=== PATIENT | male | born 1985 | race Caucasian/White ===

== ENCOUNTER 2020-03-31 20:01 | Inpatient (IN) | payer MEDICAID, SELFPAY ==
[2020-03-31 20:03] VITALS: BP 118/76; PULSE 88; RESP 17; TEMP 35.2; O2SAT 97; BMI 20.2
--- NOTE | 2020-03-31 20:17 | ED.VISSUMM ---
- ER Visit Summary Date of Service: 03/31/20 Chief Complaint: [Requesting detox from alcohol] History of Present Illness: The patient is a 34 M [presents to the emergency department requesting detox from alcohol today. Patient states that he has been drinking tequila today and his last drink was about an hour ago. Patient normally drinks beer and drinks about 6 tall boys per day which she thinks equates to about 2 gallons of beer per day. Patient denies feeling suicidal or homicidal. He is never been through detox before. He does have history of depression and has had multiple psychiatric admissions in the past. Patient with history of GERD and oppositional defiant disorder. Patient denies any abdominal pain. Denies recent illness. Patient states that has been tested for Covid twice in the last month and has been negative both times.] Physical Examination: [HEENT-PERRLA, EOMI. Cranial nerves II through XII grossly intact. TMs clear. Mucous membranes moist. No adenopathy. Cardiovascular-regular rate and rhythm without murmur or ectopy Lungs-clear to auscultation, chest wall stable without crepitus or subcu emphysema Abdomen-normoactive bowel sounds, soft, nontender, no rebound or rigidity, no peritoneal signs. Extremities-intact ?4, normal range of motion, normal pulses, atraumatic] Test Results: [CBC with differential as well as CMP and lipase ordered. Patient had an alcohol level and tox cream ordered.] Emergency Department Course and Treatment: IV line established on arrival. [] Treatment Plan: [Patient will be discussed with hospitalist to evaluate patient for admission] Disposition: [Admit] Impression: [Alcohol intoxication Request for detox from alcohol] This note was generated with Netlog dictation software. It may contain incorrect words, spelling, and punctuation that were not noted in review of the chart prior to signing ED Disposition - Plan for ED Patient: Referrals: NOT,DEFINED [NON-STAFF] -
[2020-03-31] MEDS: 0.9% Normal Saline 1,000 ML 150 ML IV (20:47)
[2020-03-31 21:19] LABS: Amphetamine Urine VISTA NEGATIVE (<1000 ng/mL); Barbiturate Urine VISTA NEGATIVE (< 200 ng/mL); Benzodiazepine Urine VISTA NEGATIVE (< 200 ng/mL); Cocaine Urine VISTA NEGATIVE (< 300 ng/mL); Ecstacy Urine VISTA NEGATIVE (< 500 ng/mL); Methadone Urine VISTA NEGATIVE (< 300 ng/mL); PCP Urine VISTA NEGATIVE (< 25 ng/mL); THC Urine VISTA NEGATIVE (< 50 ng/mL); Vista UDS pH Range 6
[2020-03-31 21:20] LABS: Absolute Lymphocyte Count 2.12 X10^3/uL (0.83-4.51); Absolute Neutrophil Count 5.4 X10^3/uL (2.0-7.7); Basophil# 0.07 X10^3/uL; Basophil% 0.8 % (0-1); Eosinophil# 0.38 X10^3/uL; Eosinophils% 4.5 % (0-5); Hematocrit 42.7 % (40-54); Hemoglobin 14.7 g/dL (13.0-16.5); Lymphocyte # 2.12 X10^3/ul (4.0); Mean Corp Hgb Conc 34.4 g/dL (32-36); Mean Corpuscular Hgb 31.9 pg (27.0-32.0); Mean Corpuscular Volume 92.6 fL (80-94); Mean Platelet Vol. 10.7 fl (6.2-12.0); Monocyte# 0.44 X10^3/uL; Monocyte% 5.2 % (0-10); NRBC Flagged by Analyzer 0 % (0-5); Neutrophil # 5.44 X10^3/uL (2.7-7.7); Neutrophil % 64.1 % (47-70); Platelet Count 190 K/mm3 (150-450); RBC Distribution Width CV 11.9 % (11.6-14.6); RBC Distribution Width SD 40.3 fl (35.1-43.9); Red Blood Count 4.61 M/mm3 (4.6-6.2); White Blood Count 8.5 K/mm3 (4.4-11.0)
[2020-03-31 21:36] LABS: AST(SGOT) 28 U/L (15-37); Alanine Aminotransfer ALT/SGPT 31 U/L (16-61); Albumin, Serum 3.9 g/dL (3.2-5.0); Alkaline Phosphatase 89 U/L (45-117); Anion Gap 7 (5-15); BUN 5 mg/dL (7-18); BUN/Creat Ratio 7.9 RATIO (10-20); Calcium,Total 9.1 mg/dL (8.5-10.1); Chloride 107 mmol/L (98-107); Creatinine, Serum 0.63 mg/dL (0.70-1.30); EST Glomerular Filtration Rate 155 mL/min (>60); Est Glom Filt Rate - Afr Amer 188 mL/min (>60); Estimated Creatinine Clearance 169.06 ml/min; Globulin 3.9 g/dL (2.2-4.2); Glucose 111 mg/dL (74-106); Potassium 3.4 mmol/L (3.5-5.1); Protein, Total 7.8 g/dL (6.4-8.2); Sodium Level 139 mmol/L (136-145)
--- NOTE | 2020-03-31 21:43 | PCM.HP.STD ---
History of Present Illness Date of Admission: 03/31/20 Chief Complaint: Alcohol withdrawal The patient is a 34 year old M with a past medical history significant for chronic alcohol abuse and nicotine dependence. He was admitted through the ED on 03/31/2020 for acute alcohol withdrawal. Patient states he drinks about 6-8 tall boys every day and also drinks tequila sometimes though he does not like tequila because it makes him mean. His last drink was about an hour prior to admission. He had no complaints and denied any dizziness, nausea, tremors, vomiting or palpitations. Review of systems is otherwise negative. He has never been through detox in a facility before, though he has gone cold turkey at home before. On admission, vitals were stable. Chemistry was unremarkable and CBC was also unremarkable. He has been admitted to be managed for acute alcohol withdrawal. Urine tox was negative and serum alcohol level was 217. [] Past Medical History Allergies gabapentin [From Neurontin] Allergy (Verified 03/31/20 20:03) Anaphylaxis Penicillins [PCN] Allergy (Verified 03/31/20 20:03) Anaphylaxis Home Medications: Ambulatory Orders Medication Instructions Recorded Aripiprazole [Abilify] 5 mg PO DAILY 03/31/20 Fluoxetine HCl [Prozac] 20 mg PO DAILY 03/31/20 Omeprazole [Prilosec] 20 mg PO DAILY 03/31/20 Surgical History: - - right LE amputation Lives: Spouse/ Significant Other Smoking Status: Heavy Smoker (>10/day) Tobacco Use: Cigarettes Alcohol: Heavy Drugs: None - *Family History Maternal History Items: No pertinent history Review of Systems Constitutional: Denies: Chills, Fever, Weight Change HEENT: Denies: Head Aches, Sinus Congestion, Sinus Drainage Cardiovascular: Denies: Chest Pain, Chest Pressure, Chest Tightness, Light Headedness, Palpitations Respiratory: Denies: Cough, Shortness of Breath, Shortness of breath at rest, Shortness of breath upon exertion, Sputum production Gastrointestinal: Denies: Abdominal Pain, Nausea, Vomiting Genitourinary: Denies: Dysuria Musculoskeletal: Denies: Joint Pain, Joint Tenderness Skin: Denies: Rash, Wounds Neurological: Denies: Numbness, Tingling, Focal weakness Psychiatric: Denies: Anxiety, Depression, Homicidal Ideations, Suicidal Ideations Hematologic/ Lymphatic: Denies: Easy Bruising, Easy Bleeding VTE Information - Inpt Only VTE Present on Admission: No VTE Pharm Prophylaxis ordered?: Yes - Physical Exam Vitals/I&O's: Vital Signs Temp Pulse Resp BP Pulse Ox 95.3 F L 88 17 118/76 97 03/31/20 20:03 03/31/20 20:03 03/31/20 20:03 03/31/20 20:03 03/31/20 20:03 Oxygen Delivery Method Room Air Weight: 158 lb Body Mass Index (BMI) 20.2 General: Alert, Oriented x3, Cooperative, No apparent distress HEENT: Atraumatic, PERRLA, EOMI, Normocephalic Oral: Moist Mucosa Neck: Supple, No JVD, Negative Carotid Bruits Lungs: Clear to auscultation, Normal air movement, No rhonchi, No wheeze, No rales Cardiovascular: Regular rate, Regular Rhythm, Normal S1, Normal S2, No murmurs Abdomen: Bowel Sounds Present, Soft, Non Tender, Non-Distended, No Hepato-splenomegaly Extremities: No clubbing, No cyanosis, No edema, Capillary Refill Less than 3 Seconds Skin: No rashes, No breakdown Musculoskeletal: - - RLE amputation, with prosthetic limb Lymphatic: No Cervical, Supraclavicular, or Inguinal Adenopathy Neurological: Cranial nerves II-XII grossly intact, Neuro grossly intact, Motor Exam 5/5 strength throughout Psych/Mental Status: Normal Affect, Appropriate, Alert and oriented to time, place, person, mood and affect Laboratory Results 03/31/20 20:35: WBC 8.5, RBC 4.61, Hgb 14.7, Hct 42.7, MCV 92.6, MCH 31.9, MCHC 34.4, RDW Std Deviation 40.3, RDW Coeff of Pepe 11.9, Plt Count 190, MPV 10.7, Immature Gran % (Auto) 0.400, Neut % (Auto) 64.1, Lymph % (Auto) 25.0, [place] % (Auto) 5.2, Eos % (Auto) 4.5, Baso % (Auto) 0.8, Absolute Neuts (auto) 5.4, Absolute Lymphs (auto) 2.12, Nucleated RBC % 0 03/31/20 20:35: Sodium 139, Potassium 3.4 L, Chloride 107, Carbon Dioxide 25.0, Anion Gap 7, BUN 5 L, Creatinine 0.63 L, Estim Creat Clear Calc 169.06, Est GFR (MDRD) Af Amer 188, Est GFR (MDRD) Non-Af 155, BUN/Creatinine Ratio 7.9 L, Glucose 111 H, Calcium 9.1, Total Bilirubin 0.20, AST 28, ALT 31, Alkaline Phosphatase 89, Total Protein 7.8, Albumin 3.9, Globulin 3.9, Albumin/Globulin Ratio 1.0 03/31/20 20:35: Ethyl Alcohol 217.0 03/31/20 20:40: Urine Opiates Screen NEGATIVE, Urine Methadone Screen NEGATIVE, Ur Barbiturates Screen NEGATIVE, Ur Phencyclidine Scrn NEGATIVE, Ur Amphetamines Screen NEGATIVE, U Methamphetamin-MDMA NEGATIVE, U Benzodiazepines Scrn NEGATIVE, Urine Cocaine Screen NEGATIVE, U Cannabinoids Screen NEGATIVE, Ur Drug Screen Comment Current Medications Sodium Chloride () 1,000 mls @ 150 mls/hr IV .Q6H40M [facility] Last Admin: 03/31/20 20:47 Dose: 150 mls/hr Documented by: Assessment/Plan 34 y/o admitted for acute alchohol withdrawal #Acute alcohol withdrawal admit to med surg start on alcohol withdrawal protocol with phenobarb thiamine, folic acid and multivitamins monitor LITZY toussaint wants to follow up with outpatient rehab facility in [facility] where he lives #nicotine dependence: nicotine patch 21mg daily. Counseled to quit #Depression: on fluoxetine and abilify. DVT prophylaxis: low risk, encourage to ambulate Inpatient E&M: 76113 Init Hosp L3
[2020-03-31 21:58] VITALS: BP 118/76; PULSE 88; RESP 17; TEMP 36.3; O2SAT 97
[2020-03-31 22:10] VITALS: BMI 19.3
[2020-03-31 22:16] VITALS: BP 127/88; PULSE 70; RESP 16; TEMP 36.8; O2SAT 98
[2020-03-31 22:31] VITALS: BMI 19.3
[2020-03-31] MEDS: Phenobarbital 32.4 MG Tablet PO (22:38)
[2020-03-31] MEDS: traZODone 100 MG Tablet PO (22:38)
--- NOTE | 2020-03-31 23:04 | PCS.PANDOC ---
PANDEMIC DOCUMENTATION INITIATED: Date:03/31/20 Time: 2199
[2020-04-01] VITALS (7 sets, daily range): BP systolic 107–131; BP diastolic 63–86; PULSE 61–88; RESP 14–16; TEMP 36.7–37.2; O2SAT 97–100
[2020-04-01] MEDS: Phenobarbital 32.4 MG Tablet PO ×6 (01:55→22:01)
[2020-04-01] MEDS: Thiamine Hydrochloride 100 MG Tablet PO ×2 (06:06→18:24)
[2020-04-01] MEDS: Folic Acid 1 MG Tablet PO (06:06)
[2020-04-01] MEDS: Multivitamins,Ther W-Minerals Tablet 1 TABLET PO (06:06)
[2020-04-01 06:26] LABS: Absolute Lymphocyte Count 1.76 X10^3/uL (0.83-4.51); Absolute Neutrophil Count 2.8 X10^3/uL (2.0-7.7); Basophil# 0.05 X10^3/uL; Basophil% 0.9 % (0-1); Eosinophil# 0.48 X10^3/uL; Eosinophils% 8.7 % (0-5); Hematocrit 42.2 % (40-54); Hemoglobin 14.2 g/dL (13.0-16.5); Lymphocyte # 1.76 X10^3/ul (4.0); Lymphocyte % 31.8 % (19-41); Mean Corp Hgb Conc 33.6 g/dL (32-36); Mean Corpuscular Hgb 31.8 pg (27.0-32.0); Mean Corpuscular Volume 94.6 fL (80-94); Mean Platelet Vol. 10.6 fl (6.2-12.0); Monocyte# 0.44 X10^3/uL; NRBC Flagged by Analyzer 0 % (0-5); Neutrophil # 2.79 X10^3/uL (2.7-7.7); Neutrophil % 50.4 % (47-70); Platelet Count 165 K/mm3 (150-450); RBC Distribution Width CV 11.9 % (11.6-14.6); RBC Distribution Width SD 41.3 fl (35.1-43.9); Red Blood Count 4.46 M/mm3 (4.6-6.2); White Blood Count 5.5 K/mm3 (4.4-11.0)
[2020-04-01 06:45] LABS: Anion Gap 5 (5-15); BUN 7 mg/dL (7-18); BUN/Creat Ratio 11.8 RATIO (10-20); Calcium,Total 8.9 mg/dL (8.5-10.1); Chloride 108 mmol/L (98-107); EST Glomerular Filtration Rate 166 mL/min (>60); Est Glom Filt Rate - Afr Amer 201 mL/min (>60); Estimated Creatinine Clearance 168.67 ml/min; Glucose 97 mg/dL (74-106); Sodium Level 140 mmol/L (136-145)
--- NOTE | 2020-04-01 07:10 | PCM.PN.HOSP ---
Subjective: Patient overnight with no acute events per self and per nursing report. He does state his withdrawal symptoms have improved he normally states he drinks in the afternoon therefore he is concerned about more symptoms later but continued on phenobarbital currently. Patient does report nicotine cravings and is requesting continue nicotine patch. Discussed plan of care which included magnesium and phosphorus level checks to which patient is amenable as well as case management consultation with 180 for discharge planning once clinically appropriate. Patient denies fevers, chills, nausea, emesis, abdominal pain, chest pain or dyspnea. Objective: Physical Examination: General: awake, alert, oriented x 3 and cooperative, laying in the medical surgical bed, no acute distress, fatigued but no obvious withdrawal symptoms. Skin: normal color, turgor, no icterus, cyanosis. HEENT: AT/NC, EOMI, PERRLA, MMM. Lungs: CTA bilaterally, normal effort, no rales, ronchi or wheezing. Heart: Regular rate and rhythm; no gallop, rub audible. Abdomen: soft, NTTP, ND, normal BS. Extremities: no cyanosis, clubbing, or edema. Neurological: patient awake, alert, oriented as noted; cognitive function intact; pupils equally reactive to light and accomodation; cranial nerves II-XII grossly normal, moving all 4 extremities, no focal deficits, strength preserved, no obvious evidence of any tremors. Psychiatric: affect appears mildly fatigued otherwise normal, no acute evidence of depressive or anxiety feelings. Vitals/I&O's: Vital Signs Temp Pulse Resp BP Pulse Ox 98.1 F 82 16 130/79 H 97 04/01/20 06:04 04/01/20 06:04 04/01/20 06:04 04/01/20 06:04 04/01/20 06:04 Oxygen Delivery Method Room Air Weight: 150 lb 2.157 oz Body Mass Index (BMI) 19.3 Intake and Output for Last 24 Hours 03/30/20 03/31/20 04/01/20 23:59 23:59 23:59 Intake Total 182.5 / 182.5 800 / 800 Balance 182.5 / 182.5 800 / 800 Laboratory Results 03/31/20 20:35: WBC 8.5, RBC 4.61, Hgb 14.7, Hct 42.7, MCV 92.6, MCH 31.9, MCHC 34.4, RDW Std Deviation 40.3, RDW Coeff of Pepe 11.9, Plt Count 190, MPV 10.7, Immature Gran % (Auto) 0.400, Neut % (Auto) 64.1, Lymph % (Auto) 25.0, [place] % (Auto) 5.2, Eos % (Auto) 4.5, Baso % (Auto) 0.8, Absolute Neuts (auto) 5.4, Absolute Lymphs (auto) 2.12, Nucleated RBC % 0 03/31/20 20:35: Sodium 139, Potassium 3.4 L, Chloride 107, Carbon Dioxide 25.0, Anion Gap 7, BUN 5 L, Creatinine 0.63 L, Estim Creat Clear Calc 169.06, Est GFR (MDRD) Af Amer 188, Est GFR (MDRD) Non-Af 155, BUN/Creatinine Ratio 7.9 L, Glucose 111 H, Calcium 9.1, Total Bilirubin 0.20, AST 28, ALT 31, Alkaline Phosphatase 89, Total Protein 7.8, Albumin 3.9, Globulin 3.9, Albumin/Globulin Ratio 1.0 03/31/20 20:35: Ethyl Alcohol 217.0 03/31/20 20:40: Urine Opiates Screen NEGATIVE, Urine Methadone Screen NEGATIVE, Ur Barbiturates Screen NEGATIVE, Ur Phencyclidine Scrn NEGATIVE, Ur Amphetamines Screen NEGATIVE, U Methamphetamin-MDMA NEGATIVE, U Benzodiazepines Scrn NEGATIVE, Urine Cocaine Screen NEGATIVE, U Cannabinoids Screen NEGATIVE, Ur Drug Screen Comment 04/01/20 05:56: WBC 5.5, RBC 4.46 L, Hgb 14.2, Hct 42.2, MCV 94.6 H, MCH 31.8, MCHC 33.6, RDW Std Deviation 41.3, RDW Coeff of Pepe 11.9, Plt Count 165, MPV 10.6, Immature Gran % (Auto) 0.200, Neut % (Auto) 50.4, Lymph % (Auto) 31.8, [place] % (Auto) 8.0, Eos % (Auto) 8.7 H, Baso % (Auto) 0.9, Absolute Neuts (auto) 2.8, Absolute Lymphs (auto) 1.76, Nucleated RBC % 0 04/01/20 05:56: Sodium 140, Potassium 4.0, Chloride 108 H, Carbon Dioxide 27.0, Anion Gap 5, BUN 7, Creatinine 0.60 L, Estim Creat Clear Calc 168.67, Est GFR (MDRD) Af Amer 201, Est GFR (MDRD) Non-Af 166, BUN/Creatinine Ratio 11.8, Glucose 97, Calcium 8.9 Current Medications Aripiprazole (Aripiprazole 5 Mg Tablet) 5 mg PO DAILY [facility] Dicyclomine HCl (Dicyclomine 10 Mg Capsule) 20 mg PO Q6H PRN PRN PRN Reason: abdominal discomfort Fluoxetine HCl (Fluoxetine 20 Mg Capsule) 20 mg PO DAILY [facility] Folic Acid (Folic Acid 1 Mg Tablet) 1 mg PO DAILY@0800 [facility] Stop: 04/03/20 08:01 Last Admin: 04/01/20 06:06 Dose: 1 mg Documented by: Hydroxyzine Pamoate (Hydroxyzine Hannah 25 Mg Capsule) 50 mg PO Q4H PRN PRN PRN Reason: mild anxiety Loperamide HCl (Loperamide 2 Mg Capsule) 2 mg PO Q4H PRN PRN PRN Reason: LOOSE STOOLS Lorazepam (Lorazepam 1 Mg Tablet) 2 mg PO Q2H PRN PRN; Protocol PRN Reason: CIWA score > 8 but <15 Lorazepam (Lorazepam 1 Mg Tablet) 2 mg PO UD PRN; Protocol PRN Reason: CIWA score >/=15. Lorazepam (Lorazepam 2 Mg/Ml Syringe) 2 mg IV Q2H PRN PRN; Protocol PRN Reason: CIWA score > 8 but <15 Lorazepam (Lorazepam 2 Mg/Ml Syringe) 2 mg IV UD PRN; Protocol PRN Reason: CIWA score >/=15. Multivitamins/Minerals (Multivitamins,Ther [facility]) [facility] Admin: 04/01/20 06:06 Dose: 1 tablet Documented by: Ondansetron HCl (Ondansetron 8 Mg Tablet) 8 mg PO Q8H PRN PRN PRN Reason: NAUSEA Ondansetron HCl (Ondansetron 4 Mg/2 Ml Vial) 4 mg IV Q8H PRN PRN PRN Reason: NAUSEA/VOMITING Pantoprazole Sodium (Pantoprazole Sodium 20 Mg Tablet) 20 mg PO DAILY [facility] Phenobarbital (Phenobarbital 32.4 Mg Tablet) 97.2 mg PO Q4H [facility]; Taper Stop: 02/16/21 06:29 Last Admin: 04/01/20 06:06 Dose: 97.2 mg Documented by: Sodium Chloride (0.9% Saline Lock 10 Ml Syringe) 10 - 40 ml IV UD PRN PRN Reason: SALINE FLUSH Thiamine HCl (Thiamine Hydrochloride 100 Mg Tablet) 100 mg PO BIDCM [facility] Stop: 04/03/20 17:01 Last Admin: 04/01/20 06:06 Dose: 100 mg Documented by: Trazodone HCl (Trazodone 100 Mg Tablet) 100 mg PO QHS PRN PRN PRN Reason: INSOMNIA Last Admin: 03/31/20 22:38 Dose: 100 mg Documented by: STROKE Vital Signs/Narrative: Vital Signs Temp Pulse Resp BP Pulse Ox 04/01/20 06:04 98.1 F 82 16 130/79 H 97 Medical Necessity - Tobacco Use Smoking Status: Current some day smoker Tobacco Use: Cigarettes Assessment/Plan The patient is a 34 y/o M w/ PMHx: Anxiety and Depression/? Bipolar disorder, Tobacco use, GERD, EtOH Abuse who presents to the [facility] ED on 03/31/20 with evidence of acute alcohol withdrawal with normal intake 6-8 tall boys daily as well as intermittent tequila intake. 1. Acute EtOH Withdrawal: Patient mated to the medical surgical floor, routine labs obtained in the ED upon presentation and notable for hypokalemia 3.4. Given interest in sobriety, patient initiated and continued on protocol with taper course of Phenobarbital, as needed Catapres, Bentyl, Vistaril, IV fluids, IV antiemetics, Tylenol as needed for pain. Will consult Case management for assistance for transition to next level of rehabilitation care. Mag, phos obtained and noted to be normal. Maintain on CIWA protocol concurrently. 2. Hypokalemia: Admission K+ 3.4, magnesium obtained and noted to be 2.1, supplementation given, repeat level 04/01/2020 4.0, normalized. 3. Tobacco Abuse: Encouraged cessation, inpatient consultation per RT, NR if desired. 4. Anxiety and depression/? bipolar disorder: We will continue patient home fluoxetine and Abilify regimen. 5. DVT prophylaxis: Low risk, encourage ambulation. Inpatient E&M: 05777 Subs Hosp L2
[2020-04-01 08:52] LABS: Magnesium 2.1 mg/dL (1.6-2.6); Phosphorus 4.5 mg/dL (2.5-4.9)
--- NOTE | 2020-04-01 10:19 | ADDICTION ---
This underwriter solicitation director met with PT in his room to administer the ASAM, MSE and AUDIT assessments and to plan for d/c. PT a+ox4 and participated appropriately. All assessments completed, faxed to [facility] and placed in PT's chart. PT states that he is scheduled to enter into [facility] IOP program, in [place], [place], following d/c from [facility]. He reports that he has independent transportation.
[2020-04-01] MEDS: ARIPiprazole 5 MG Tablet PO (10:30)
[2020-04-01] MEDS: Pantoprazole Sodium 20 MG Tablet PO (10:30)
[2020-04-01] MEDS: FLUoxetine 20 MG Capsule PO (10:30)
[2020-04-01] MEDS: hydrOXYzine PAM 25 MG Capsule 50 MG PO (18:29)
[2020-04-01] MEDS: LORazepam 2 MG/ML Syringe IV (20:02)
[2020-04-01] MEDS: 0.9% Saline Lock 10 ML Syringe IV (20:02)
[2020-04-01] MEDS: traZODone 100 MG Tablet PO (22:02)
[2020-04-02 01:51] VITALS: BP 124/77; PULSE 68; RESP 16; TEMP 36.5; O2SAT 97
[2020-04-02] MEDS: Phenobarbital 32.4 MG Tablet PO ×6 (01:56→23:09)
[2020-04-02 06:22] VITALS: BP 123/75; PULSE 74; RESP 18; TEMP 37; O2SAT 97
[2020-04-02] MEDS: Thiamine Hydrochloride 100 MG Tablet PO ×2 (06:33→18:45)
[2020-04-02] MEDS: Multivitamins,Ther W-Minerals Tablet 1 TABLET PO (06:33)
[2020-04-02] MEDS: Folic Acid 1 MG Tablet PO (06:33)
--- NOTE | 2020-04-02 06:54 | PCM.PN.HOSP ---
Subjective: Patient with no acute events overnight per self and per nursing report however did have elevated CIWA score in the evening requiring 1 dose of Ativan overlapping with his phenobarbital taper but improved following this. He notes sleeping well and was very sluggish this morning. Later in the morning when attempting to get up patient did fall forward and bumped his head on the wall but had no loss of consciousness nor any abrasions and was clinically well-appearing. Patient denies fevers, chills, nausea, emesis, abdominal pain, chest pain or dyspnea. Objective: Physical Examination: General: Wakens to stimuli, somewhat alert but more sluggish than day prior, no acute complaints at this time, cooperative, laying in the medical surgical bed, no acute distress, fatigued but no obvious withdrawal symptoms. Skin: normal color, turgor, no icterus, cyanosis. HEENT: AT/NC, EOMI, PERRLA, MMM. Lungs: CTA bilaterally, normal effort, no rales, ronchi or wheezing. Heart: Regular rate and rhythm; no gallop, rub audible. Abdomen: soft, NTTP, ND, normal BS. Extremities: no cyanosis, clubbing, or edema chronic prosthesis, right lower extremity, off at this time. Neurological: Wakens to stimuli, somewhat alert but more sluggish than day prior, no acute complaints at this time, cooperative; cognitive function mildly decreased currently is sluggish, just awakening, cranial nerves II-XII grossly normal, moving all 4 extremities with chronic prosthesis off at this time, no focal deficits, strength preserved, no obvious evidence of any tremors. Psychiatric: affect appears more fatigued this a.m., no acute evidence of depressive or anxiety feelings. Vitals/I&O's: Vital Signs Temp Pulse Resp BP Pulse Ox 98.6 F 74 18 123/75 H 97 04/02/20 06:22 04/02/20 06:22 04/02/20 06:22 04/02/20 06:22 04/02/20 06:22 Oxygen Delivery Method Room Air Weight: 150 lb 2.157 oz Body Mass Index (BMI) 19.3 Intake and Output for Last 24 Hours 03/31/20 04/01/20 04/02/20 23:59 23:59 23:59 Intake Total 182.5 / 182.5 3000 / 3000 300 / 300 Balance 182.5 / 182.5 3000 / 3000 300 / 300 Laboratory Results 04/01/20 06:00: Phosphorus 4.5, Magnesium 2.1 Current Medications Acetaminophen (Acetaminophen 500 Mg Tablet) 500 mg PO Q4H PRN PRN PRN Reason: Temp > 100.4 F Al Hydroxide/Mg Hydroxide (Mag Hydrox/Al Hydrox/Simeth 30 Ml Udc) 30 ml PO Q6H PRN PRN PRN Reason: dyspesia Aripiprazole (Aripiprazole 5 Mg Tablet) 5 mg PO DAILY [facility] Last Admin: 04/01/20 10:30 Dose: 5 mg Documented by: Bisacodyl (Bisacodyl 10 Mg Suppository) 10 mg RC DAILY PRN PRN Reason: Constipation Dicyclomine HCl (Dicyclomine 10 Mg Capsule) 20 mg PO Q6H PRN PRN PRN Reason: abdominal discomfort Fluoxetine HCl (Fluoxetine 20 Mg Capsule) 20 mg PO DAILY [facility] Last Admin: 04/01/20 10:30 Dose: 20 mg Documented by: Folic Acid (Folic Acid 1 Mg Tablet) 1 mg PO DAILY@0800 [facility] Stop: 04/03/20 08:01 Last Admin: 04/02/20 06:33 Dose: 1 mg Documented by: Hydroxyzine Pamoate (Hydroxyzine Hannah 25 Mg Capsule) 50 mg PO Q4H PRN PRN PRN Reason: mild anxiety Last Admin: 04/01/20 18:29 Dose: 50 mg Documented by: Ibuprofen (Ibuprofen 600 Mg Tablet) 600 mg PO Q8H PRN PRN PRN Reason: PAIN 1-10/10 Loperamide HCl (Loperamide 2 Mg Capsule) 2 mg PO Q4H PRN PRN PRN Reason: LOOSE STOOLS Lorazepam (Lorazepam 1 Mg Tablet) 2 mg PO Q2H PRN PRN; Protocol PRN Reason: CIWA score > 8 but <15 Lorazepam (Lorazepam 1 Mg Tablet) 2 mg PO UD PRN; Protocol PRN Reason: CIWA score >/=15. Lorazepam (Lorazepam 2 Mg/Ml Syringe) 2 mg IV Q2H PRN PRN; Protocol PRN Reason: CIWA score > 8 but <15 Last Admin: 04/01/20 20:02 Dose: 2 mg Documented by: Lorazepam (Lorazepam 2 Mg/Ml Syringe) 2 mg IV UD PRN; Protocol PRN Reason: CIWA score >/=15. Multivitamins/Minerals (Multivitamins,Ther W-Minerals Tablet) [facility] Last Admin: 04/02/20 06:33 Dose: 1 tablet Documented by: Nicotine (Nicotine 21 Mg Patch) 21 mg TD DAILY [facility] Last Admin: 04/01/20 15:34 Dose: 21 mg Documented by: Ondansetron HCl (Ondansetron 8 Mg Tablet) 8 mg PO Q8H PRN PRN PRN Reason: NAUSEA Ondansetron HCl (Ondansetron 4 Mg/2 Ml Vial) 4 mg IV Q8H PRN PRN PRN Reason: NAUSEA/VOMITING Pantoprazole Sodium (Pantoprazole Sodium 20 Mg Tablet) 20 mg PO DAILY [facility] Last Admin: 04/01/20 10:30 Dose: 20 mg Documented by: Phenobarbital (Phenobarbital 32.4 Mg Tablet) 64.8 mg PO Q4H [facility]; Taper Stop: 04/05/20 06:29 Last Admin: 04/02/20 06:33 Dose: 64.8 mg Documented by: Senna (Senna Tablet) 2 tablet PO QHS PRN PRN Reason: Constipation Sodium Chloride (0.9% Saline Lock 10 Ml Syringe) 10 - 40 ml IV UD PRN PRN Reason: SALINE FLUSH Last Admin: 04/01/20 20:02 Dose: 10 ml Documented by: Thiamine HCl (Thiamine Hydrochloride 100 Mg Tablet) 100 mg PO BIDCM [facility] Stop: 04/03/20 17:01 Last Admin: 04/02/20 06:33 Dose: 100 mg Documented by: Trazodone HCl (Trazodone 100 Mg Tablet) 100 mg PO QHS PRN PRN PRN Reason: INSOMNIA Last Admin: 04/01/20 22:02 Dose: 100 mg Documented by: STROKE Vital Signs/Narrative: Vital Signs Temp Pulse Resp BP Pulse Ox 04/02/20 06:22 98.6 F 74 18 123/75 H 97 Medical Necessity - Tobacco Use Smoking Status: Current some day smoker Tobacco Use: Cigarettes Assessment/Plan The patient is a 34 y/o M w/ PMHx: Anxiety and Depression/? Bipolar disorder, Tobacco use, GERD, EtOH Abuse who presents to the [facility] ED on 03/31/20 with evidence of acute alcohol withdrawal with normal intake 6-8 tall boys daily as well as intermittent tequila intake. 1. Acute EtOH Withdrawal: Patient mated to the medical surgical floor, routine labs obtained in the ED upon presentation and notable for hypokalemia 3.4. Given interest in sobriety, patient initiated and continued on protocol with taper course of Phenobarbital, as needed Catapres, Bentyl, Vistaril, IV fluids, IV antiemetics, Tylenol as needed for pain. Patient did have increased sluggishness, fatigue but did require Ativan in the evening 04/01/2020 to 04/02/2020 secondary to symptoms with fall forward while attempting to get up out of bed 04/02/2020 with no obvious injury or any loss of consciousness. Encourage usage of the prosthesis with any attempted movement out of bed. Will monitor for increased sedation and lethargy and hold regimen as needed. We will continue with case management consultation for transition to next level of rehabilitation with 180 involvement. Magnesium and phosphorus levels were normal. Continue CIWA protocol overlapping as needed. 2. Hypokalemia: Admission K+ 3.4, magnesium obtained and noted to be 2.1, supplementation given, repeat level 04/01/2020 4.0, normalized. 3. Tobacco Abuse: Encouraged cessation, inpatient consultation per RT, NR if desired. 4. Anxiety and depression/? bipolar disorder: We will continue patient home fluoxetine and Abilify regimen. 5. DVT prophylaxis: Low risk, encourage ambulation. Inpatient E&M: 30423 Subs Hosp L2
[2020-04-02 10:00] VITALS: BP 124/72; PULSE 86; RESP 18; TEMP 36.7; O2SAT 98
[2020-04-02] MEDS: FLUoxetine 20 MG Capsule PO (10:10)
[2020-04-02] MEDS: Pantoprazole Sodium 20 MG Tablet PO (10:10)
[2020-04-02] MEDS: ARIPiprazole 5 MG Tablet PO (10:10)
[2020-04-02] MEDS: 0.9% Saline Lock 10 ML Syringe IV ×4 (10:14→17:35)
[2020-04-02] MEDS: LORazepam 2 MG/ML Syringe IV ×4 (10:14→17:35)
[2020-04-02] MEDS: hydrOXYzine PAM 25 MG Capsule 50 MG PO (12:16)
[2020-04-02 14:00] VITALS: BP 124/91; PULSE 90; RESP 18; TEMP 36.8; O2SAT 98
[2020-04-02 18:49] VITALS: BP 130/78; PULSE 87; RESP 16; TEMP 37.2; O2SAT 97
--- NOTE | 2020-04-02 18:50 | CT_ITS ---
STUDY: CT BRAIN WITHOUT CONTRAST REASON FOR EXAM: Male, 34 years old. FELL FOWARD, BUMPED HEAD ON WALL THIS AM. ETOH WITHDRAWAL RADIATION DOSAGE (If Supplied By Facility): CTDIvol = ( 44.99 ) mGy, DLP = ( 812.98 ) mGycm TECHNIQUE: Transaxial CT imaging of the brain was performed without administration of intravenous contrast material. Individualized dose optimization techniques were used for this CT. COMPARISON: No relevant priors. FINDINGS: Normal soft tissue structures. Normal calvarium. Normal size ventricles and extra-axial spaces for the patient''s age. Normal white matter tracts of the cerebral hemispheres. Normal basal ganglia and thalami. Normal brainstem. Normal cerebellum. There is no intracranial hemorrhage. There are no findings of an acute ischemic infarction. Normal visualized paranasal sinuses. CT/Brain/Head without Contrast IMPRESSION: Normal unenhanced CT scan of the brain. Electronically Signed: Greg Hollingsworth MD at 22:17 EST , Service support ,
--- NOTE | 2020-04-02 20:45 | NURSING ---
Pt's girlfriend called the pt's mother and told her the pt had fallen and that he was sedated. Then the mother called in. I advised the mother that he was currently sleeping but I never told the girlfriend that we had sedated him. I told her some of the meds we give can cause sedation.
[2020-04-02 21:07] VITALS: BP 135/84; PULSE 73; RESP 18; TEMP 36.8; O2SAT 98
[2020-04-03 03:20] VITALS: BP 130/87; PULSE 78; RESP 18; TEMP 36.6; O2SAT 98
[2020-04-03] MEDS: Phenobarbital 32.4 MG Tablet PO ×4 (03:24→20:46)
--- NOTE | 2020-04-03 07:32 | PCM.PN.HOSP ---
Subjective: The patient is a 34 y/o M w/ PMHx: Anxiety and Depression/? Bipolar disorder, Tobacco use, GERD, EtOH Abuse who presented to the [facility] ED on 03/31/20 with evidence of acute alcohol withdrawal with normal intake 6-8 tall boys daily as well as intermittent tequila intake. Patient admitted to the medical surgical floor, routine labs obtained in the ED upon presentation and notable for hypokalemia 3.4. Given interest in sobriety, patient initiated and continued on protocol with taper course of Phenobarbital, as needed Catapres, Bentyl, Vistaril, IV fluids, IV antiemetics, Tylenol as needed for pain. Patient did have increased sluggishness, fatigue but did require Ativan in the evening 04/01/2020 to 04/02/2020 secondary to symptoms with fall forward while attempting to get up out of bed 04/02/2020 with no obvious injury or any loss of consciousness. CT head with no acute intracranial findings. 04/02/2020 significantly increased symptoms overnight into 04/03/2020 therefore concurrent Ativan taper with phenobarbital taper initiated with significant improvement upon reevaluation. We will continue with case management consultation for transition to next level of rehabilitation with 180 involvement. Magnesium and phosphorus levels were normal. Continue CIWA protocol overlapping as needed. Patient evening prior with unfortunate fall and significantly increased CIWA scoring. Patient was shifted to room next to the nursing station secondary to his activity. Patient initiated on Ativan taper as well as continued phenobarb taper with significant improvement this a.m. upon evaluation. Patient is up, writing a story and does report that he needs to keep his mind off of his symptoms. He has lessened tremors and is alert and appropriate at this time. Insert ROS. Objective: Physical Examination: General: Significantly improved since day prior, alert, awake, oriented x3, seated up in the bed, writing, mildly irritable otherwise no acute distress, significant improvement of withdrawal symptoms. Skin: normal color, turgor, no icterus, cyanosis. HEENT: AT/NC, EOMI, PERRLA, MMM. Lungs: CTA bilaterally, normal effort, no rales, ronchi or wheezing. Heart: Regular rate and rhythm; no gallop, rub audible. Abdomen: soft, NTTP, ND, normal BS. Extremities: no cyanosis, clubbing, or edema chronic prosthesis, right lower extremity, off at this time. Neurological: Awake and alert, oriented times greater than 3 at this time as noted, improved from day prior, cognitive function more near baseline than previously, cranial nerves II-XII grossly normal, moving all 4 extremities with chronic prosthesis in place, strength proved, mildly decreased, significantly lessened tremors. Psychiatric: affect appears less fatigued, irritable, no acute evidence of depressive or anxiety feelings. Vitals/I&O's: Vital Signs Temp Pulse Resp BP Pulse Ox 97.8 F 78 18 130/87 H 98 04/03/20 03:20 04/03/20 03:20 04/03/20 03:20 04/03/20 03:20 04/03/20 03:20 Oxygen Delivery Method Room Air Weight: 150 lb 2.157 oz Body Mass Index (BMI) 19.3 Intake and Output for Last 24 Hours 04/01/20 04/02/20 04/03/20 23:59 23:59 23:59 Intake Total 3000 / 3000 2300 / 2300 300 / 300 Balance 3000 / 3000 2300 / 2300 300 / 300 Current Medications Acetaminophen (Acetaminophen 500 Mg Tablet) 500 mg PO Q4H PRN PRN PRN Reason: Temp > 100.4 F Al Hydroxide/Mg Hydroxide (Mag Hydrox/Al Hydrox/Simeth 30 Ml Udc) 30 ml PO Q6H PRN PRN PRN Reason: dyspesia Aripiprazole (Aripiprazole 5 Mg Tablet) 5 mg PO DAILY [facility] Last Admin: 04/02/20 10:10 Dose: 5 mg Documented by: Bisacodyl (Bisacodyl 10 Mg Suppository) 10 mg RC DAILY PRN PRN Reason: Constipation Dicyclomine HCl (Dicyclomine 10 Mg Capsule) 20 mg PO Q6H PRN PRN PRN Reason: abdominal discomfort Fluoxetine HCl (Fluoxetine 20 Mg Capsule) 20 mg PO DAILY [facility] Last Admin: 04/02/20 10:10 Dose: 20 mg Documented by: Folic Acid (Folic Acid 1 Mg Tablet) 1 mg PO DAILY@0800 [facility] Stop: 04/03/20 08:01 Last Admin: 04/02/20 06:33 Dose: 1 mg Documented by: Hydroxyzine Pamoate (Hydroxyzine Hannah 25 Mg Capsule) 50 mg PO Q4H PRN PRN PRN Reason: mild anxiety Last Admin: 04/02/20 12:16 Dose: 50 mg Documented by: Ibuprofen (Ibuprofen 600 Mg Tablet) 600 mg PO Q8H PRN PRN PRN Reason: PAIN 1-11/27 Loperamide HCl (Loperamide 2 Mg Capsule) 2 mg PO Q4H PRN PRN PRN Reason: LOOSE STOOLS Lorazepam (Lorazepam 1 Mg Tablet) 2 mg PO Q2H PRN PRN; Protocol PRN Reason: CIWA score > 8 but <15 Lorazepam (Lorazepam 1 Mg Tablet) 2 mg PO UD PRN; Protocol PRN Reason: CIWA score >/=15. Lorazepam (Lorazepam 2 Mg/Ml Syringe) 2 mg IV Q2H PRN PRN; Protocol PRN Reason: CIWA score > 8 but <15 Last Admin: 04/02/20 17:35 Dose: 2 mg Documented by: Lorazepam (Lorazepam 2 Mg/Ml Syringe) 2 mg IV UD PRN; Protocol PRN Reason: CIWA score >/=15. Lorazepam (Lorazepam 1 Mg Tablet) 2 mg PO Q4H [facility]; Taper Stop: 04/07/20 02:59 Last Admin: 04/03/20 03:24 Dose: Not Given Documented by: Multivitamins/Minerals (Multivitamins,Ther W-Minerals Tablet) [facility] Last Admin: 04/02/20 06:33 Dose: 1 tablet Documented by: Nicotine (Nicotine 21 Mg Patch) 21 mg TD DAILY [facility] Last Admin: 04/02/20 10:22 Dose: 21 mg Documented by: Ondansetron HCl (Ondansetron 8 Mg Tablet) 8 mg PO Q8H PRN PRN PRN Reason: NAUSEA Ondansetron HCl (Ondansetron 4 Mg/2 Ml Vial) 4 mg IV Q8H PRN PRN PRN Reason: NAUSEA/VOMITING Pantoprazole Sodium (Pantoprazole Sodium 20 Mg Tablet) 20 mg PO DAILY [facility] Last Admin: 04/02/20 10:10 Dose: 20 mg Documented by: Phenobarbital (Phenobarbital 32.4 Mg Tablet) 64.8 mg PO Q6H [facility]; Taper Stop: 04/05/20 06:29 Last Admin: 04/03/20 07:03 Dose: 64.8 mg Documented by: Senna (Senna Tablet) 2 tablet PO QHS PRN PRN Reason: Constipation Sodium Chloride (0.9% Saline Lock 10 Ml Syringe) 10 - 40 ml IV UD PRN PRN Reason: SALINE FLUSH Last Admin: 04/02/20 17:35 Dose: 10 ml Documented by: Thiamine HCl (Thiamine Hydrochloride 100 Mg Tablet) 100 mg PO BIDCM [facility] Stop: 04/03/20 17:01 Last Admin: 04/02/20 18:45 Dose: 100 mg Documented by: Trazodone HCl (Trazodone 100 Mg Tablet) 100 mg PO QHS PRN PRN PRN Reason: INSOMNIA Last Admin: 04/01/20 22:02 Dose: 100 mg Documented by: Medical Necessity - Tobacco Use Smoking Status: Current some day smoker Tobacco Use: Cigarettes Assessment/Plan The patient is a 34 y/o M w/ PMHx: Anxiety and Depression/? Bipolar disorder, Tobacco use, GERD, EtOH Abuse who presents to the [facility] ED on 03/31/20 with evidence of acute alcohol withdrawal with normal intake 6-8 tall boys daily as well as intermittent tequila intake. 1. Acute EtOH Withdrawal: Patient admitted to the medical surgical floor, routine labs obtained in the ED upon presentation and notable for hypokalemia 3.4. Given interest in sobriety, patient initiated and continued on protocol with taper course of Phenobarbital, as needed Catapres, Bentyl, Vistaril, IV fluids, IV antiemetics, Tylenol as needed for pain. Patient did have increased sluggishness, fatigue but did require Ativan in the evening 04/01/2020 to 04/02/2020 secondary to symptoms with fall forward while attempting to get up out of bed 04/02/2020 with no obvious injury or any loss of consciousness. CT head with no acute intracranial findings. 04/02/2020 significantly increased symptoms overnight into 04/03/2020 therefore concurrent Ativan taper with phenobarbital taper initiated with significant improvement upon reevaluation. We will continue with case management consultation for transition to next level of rehabilitation with 180 involvement. Magnesium and phosphorus levels were normal. Continue CIWA protocol overlapping as needed. 2. Hypokalemia: Admission K+ 3.4, magnesium obtained and noted to be 2.1, supplementation given, repeat level 04/01/2020 4.0, normalized. 3. Tobacco Abuse: Encouraged cessation, inpatient consultation per RT, NR if desired. 4. Anxiety and depression/? bipolar disorder: We will continue patient home fluoxetine and Abilify regimen. 5. DVT prophylaxis: Low risk, encourage ambulation. Inpatient E&M: 09189 Subs Hosp L2
[2020-04-03] MEDS: LORazepam 1 MG Tablet PO ×4 (08:28→20:47)
[2020-04-03] MEDS: Folic Acid 1 MG Tablet PO (08:30)
[2020-04-03] MEDS: Multivitamins,Ther W-Minerals Tablet 1 TABLET PO (08:30)
[2020-04-03] MEDS: Thiamine Hydrochloride 100 MG Tablet PO ×2 (08:30→15:31)
[2020-04-03] MEDS: ARIPiprazole 5 MG Tablet PO ×2 (08:31)
[2020-04-03] MEDS: FLUoxetine 20 MG Capsule PO (08:31)
[2020-04-03] MEDS: Pantoprazole Sodium 20 MG Tablet PO (08:31)
[2020-04-03 10:00] VITALS: BP 110/82; PULSE 92; RESP 18; TEMP 36.9; O2SAT 99
[2020-04-03 15:45] VITALS: BP 128/70; PULSE 78; RESP 18; TEMP 36.9; O2SAT 98
[2020-04-03 20:39] VITALS: BP 124/81; PULSE 79; RESP 18; TEMP 36.5; O2SAT 98
[2020-04-03] MEDS: traZODone 100 MG Tablet PO (22:26)
[2020-04-04] MEDS: Phenobarbital 32.4 MG Tablet PO ×2 (00:19→06:23)
[2020-04-04] MEDS: LORazepam 1 MG Tablet PO ×3 (00:20→06:23)
[2020-04-04 03:21] VITALS: BP 112/74; PULSE 86; RESP 18; TEMP 37; O2SAT 99
[2020-04-04 08:50] VITALS: BP 125/79; PULSE 92; RESP 18; TEMP 37; O2SAT 100
[2020-04-04] MEDS: Multivitamins,Ther W-Minerals Tablet 1 TABLET PO (08:52)
[2020-04-04] MEDS: FLUoxetine 20 MG Capsule PO (08:54)
[2020-04-04] MEDS: ARIPiprazole 5 MG Tablet PO (08:54)
[2020-04-04] MEDS: Pantoprazole Sodium 20 MG Tablet PO (08:54)
[2020-04-04] MEDS: hydrOXYzine PAM 25 MG Capsule 50 MG PO (09:00)
--- NOTE | 2020-04-04 11:24 | NURSING ---
LATE ENTRY - 0957 - PT LEFT CATIA
--- NOTE | 2020-04-04 14:56 | PCM.DC.SUM ---
Discharge Date and Diagnosis Date of Admission: 03/31/20 Date of Discharge: 04/04/20 - Primary Discharge Diagnosis Acute Problems: alcohol withdrawal Hospital Course and Treatment Summary of Care Provided: The patient is a 34 year old M patient presents assessing treatment for acute alcohol withdrawal. Patient was started on phenobarbital but then lorazepam was added. On 13 patient felt woozy did hit his head. Head CT was unremarkable. Discontinue the lorazepam today and plan was to continue with phenobarbital for another 1 to 2 days. Patient stated that he could not stay any longer than today and insisted on leaving AGAINST MEDICAL ADVICE. Patient was very pleasant during this encounter and was not combative whatsoever. I did advise the patient to stay to get further treatment but patient insisted on leaving as medical advice. [] - Physical Exam Vitals/I&O's: Vital Signs Temp Pulse Resp BP Pulse Ox 37.0 C 92 18 125/79 H 100 04/04/20 08:50 04/04/20 08:50 04/04/20 08:50 04/04/20 08:50 04/04/20 08:50 Oxygen Delivery Method Room Air Weight: 68.1 kg Body Mass Index (BMI) 19.3 Intake and Output for Last 24 Hours 04/02/20 04/03/20 04/04/20 23:59 23:59 23:59 Intake Total 2300 / 2300 1480 / 1480 500 / 500 Balance 2300 / 2300 1480 / 1480 500 / 500 General: Alert, No apparent distress HEENT: Atraumatic, Normocephalic Oral: Moist Mucosa, No Gingival or Mucosal Lesions/ Ulcerations Psych/Mental Status: Normal Affect, Appropriate Discharge Diet: No Restrictions Home Medications: Medications to take at Discharge Aripiprazole [Abilify] 5 mg PO DAILY 03/31/20 Fluoxetine HCl [Prozac] 20 mg PO DAILY 03/31/20 Omeprazole [Prilosec] 20 mg PO DAILY 03/31/20 Primary Care Physician: NOT,DEFINED [NON-STAFF] - Disposition: Against Medical Advice Patient Condition:: Good Medical Necessity - Tobacco Use Smoking Status: Current some day smoker Tobacco Use: Cigarettes Meaningful Use Info Meaningful Use Diagnoses (Choose all that apply): None applicable Inpatient E&M: 43572 Disch Hosp
== END 2020-04-04 09:57 | disposition left against medical advice (07) | DRG 770 ==
LOC: ED 20:46 → MS3 21:24
PROVIDERS: Family Medicine; Admitting Provider Student in an Organized Health Care Education/Training Program; Emergency Provider Emergency Medicine
DX: F10.239 Alcohol dependence with withdrawal, unspecified (principal); F10.229 Alcohol dependence with intoxication, unspecified; Y90.7 Blood alcohol level of 200-239 mg/100 ml; F17.210 Nicotine dependence, cigarettes, uncomplicated; E87.6 Hypokalemia; F32.9 Major depressive disorder, single episode, unspecified; F41.9 Anxiety disorder, unspecified; K21.9 Gastro-esophageal reflux disease without esophagitis; Z53.29 Procedure and treatment not carried out because of patient's decision for other reasons
CPT/HCPCS: 36415; 70450; 80048; 80053; 80307; 82077; 83735; 84100; 85025; 99282; J7030; A4216